=== PATIENT | female | born 1985 | race Caucasian/White ===

== ENCOUNTER → 2019-07-06 16:24 | Outpatient (BNVA) | payer MEDICARE, SELFPAY | PROVIDERS: Family Provider Family Medicine; PCP Family Medicine; Visit Provider Internal Medicine | DX: B18.2 Chronic viral hepatitis C (principal); E78.5 Hyperlipidemia, unspecified | CPT/HCPCS: 36415; 80053; 85025 ==

== ENCOUNTER → 2019-07-18 13:33 | Outpatient (BNVA) | payer SELFPAY | PROVIDERS: Family Provider Family Medicine; PCP Family Medicine; Visit Provider Psychiatry & Neurology Psychiatry | DX: F41.1 Generalized anxiety disorder (principal); F15.20 Other stimulant dependence, uncomplicated; F10.20 Alcohol dependence, uncomplicated; F33.2 Major depressive disorder, recurrent severe without psychotic features | CPT/HCPCS: 99204 ==

== ENCOUNTER → 2019-08-09 11:08 | Outpatient (BNVA) | payer MEDICARE, SELFPAY | PROVIDERS: Family Provider Family Medicine; PCP Family Medicine; Visit Provider Internal Medicine | DX: Z01.89 Encounter for other specified special examinations (principal) | CPT/HCPCS: 36415; 87522; 87902 ==

== ENCOUNTER 2019-08-10 12:07 | Emergency (ER) | payer MEDICARE, SELFPAY ==
[2019-08-10 12:41] VITALS: BP 125/96; PULSE 98; RESP 16; TEMP 36.9; O2SAT 99; BMI 33.0
--- NOTE | 2019-08-10 14:23 | ED_ITS ---
HPI - Abdominal Pain General: Chief Complaint: Abdominal Pain Stated Complaint: abd pain, flank pain, nausea Time Seen by Provider: 08/10/19 14:04 Source: patient Mode of arrival: ambulatory Limitations: no limitations History of Present Illness: HPI narrative: Patient is a 34-year-old female who presents to ED today with complaints of right upper quadrant pain over the past 2 days. Patient states she is having some nausea without vomiting. Bowel movements and urinary habits have been normal. She reports chills without fevers. Patient does have a known history of hepatitis C that was diagnosed last month-seeing Dr. Tian for this. MD elicited complaint: abdominal pain Pertinent past history: other (hep C) Onset (ago): day(s) Pain Consistency: constant Location: RUQ Severity: moderate Quality: stabbing, aching and sharp Relieving factors: nothing Associated Symptoms: Reports chills and nausea; Denies change in bowel habits, change in stool character, coffee ground emesis, constipation, dysuria, fever(s), heartburn, hematochezia, hematemesis, melena, syncope and vomiting Related Data: Date of Last Menstrual Period: 07/18/19 Review of Systems Const: Reports: chills; Denies: fever, body aches, change in appetite, change in weight or fatigue Card: Denies: chest pain, palpitations, irregular heart rhythm, edema, lightheadedness, syncope, pre-syncope or shortness of breath when lying down Resp: Denies: shortness of breath, productive cough, coughing up blood or chest congestion GI: Reports: abdominal pain and nausea; Denies: vomiting, vomiting blood, coffee grounds in vomit, difficulty swallowing, heartburn/indigestion, constipation, change in bowel habits, painful bowel movements, change in stool character, blood in stool, black tarry stool, mucus in stool, white/light colored stool or fatty stool : Denies: flank pain, difficulty urinating, painful urination, urinary frequency, urinary urgency, urinary hesitancy, vaginal bleeding, vaginal discharge or pelvic pain Musc: Denies: neck pain or back pain PFS ED PFSH: Social History (Updated 08/09/19 @ 11:42 by SALMA Smith) Smoking and tobacco status: current every day smoker cigarettes Packs smoked per day: 0.5 Years cigarettes smoked: 18 Quit status (tobacco): has tried quititng Number of times tried to quit tobacco: 5 Second hand smoke exposure: No Smoking risk assessment/counseling performed?: Yes Tobacco counseling given: counseling >3 minutes Alcohol intake: current Alcohol intake frequency: few times a month History of recent travel: No Female Reproductive History: Date of last menstrual period: 07/18/19 Physical Exam Const: COMMON NORMALS: no apparent distress, oriented x3, no limitations, alert and well nourished NUTRITIONAL APPEARANCE: obese Resp: COMMON NORMALS: normal respiratory effort and clear to auscultation bilaterally AUSCULTATION: clear to auscultation bilaterally Cardio: COMMON NORMALS: regular rate and regular rhythm RATE: regular rate RHYTHM: regular rhythm GI: COMMON NORMALS: normal to inspection, nondistended, normoactive bowel sounds, soft to palpation, no hepatosplenomegaly and no masses PALPATION: Yes soft, Yes tender Details: RUQ (with guarding/positive Crook's ) and Yes no hepatosplenomegaly : BLADDER/KIDNEY EXAM: Yes CVA tenderness on the right Back/Pelvis: COMMON NORMALS: thoracic and lumbar spine normal to inspection and thoraco-lumbar ROM normal GENERAL BACK: Yes CVA tenderness Extremity: COMMON NORMALS: normal to inspection Neuro: COMMON NORMALS: oriented x3 SENSORIUM/ORIENTATION: Yes alert Skin: COMMON NORMALS: no rashes or lesions noted GENERAL SKIN EXAM: no rashes or lesions noted Course Vital Signs: Vital signs: Vital Signs Temperature 97.6 F 08/10/19 16:35 Pulse Rate 104 H 08/10/19 16:35 Respiratory Rate 16 08/10/19 16:35 Blood Pressure 133/85 08/10/19 16:35 Pulse Oximetry 96 08/10/19 16:35 MDM - Abdominal Pain MDM Narrative: Medical decision making narrative: Patient presented to ED today with complaints of 48 hours of right upper quadrant pain. Reveal mildly elevated LFTs which are chronic most likely from her hepatitis C infection. She has mild elevation of her lipase (this was present back in 2014). She has no white count. She is not febrile. She was a little tachycardic in the room upon reexamination but she states overall she feels much better after pain medications and nausea medications. I do not feel CT imaging. We will treat patient's pain and nausea and recommend she continue to follow-up with Dr. Tian for treatment of the hepatitis C. Lab Data: Labs: Lab Results 08/10/19 08/10/19 08/10/19 Range/Units 12:58 14:42 14:42 WBC 7.1 (4.0-10.0) 10^3/ uL RBC 4.47 (4.1-5.3) 10^6/u L Hgb 14.4 (11.5-15.3) g/dL Hct 42.7 (37.0-47.0) % MCV 95.5 (81-99) fL MCH 32.2 (28.0-34.0) pg MCHC 33.7 (30.0-36.0) g/dL RDW 12.3 (12.1-15.1) % Plt Count 296 (130-400) 10^3/c mm MPV 10.2 (7.4-10.4) fL Neut % (Auto) 59.8 % Lymph % (Auto) 32.2 % Richardson % (Auto) 5.5 % Eos % (Auto) 1.3 % Baso % (Auto) 1.1 % Neut # (Auto) 4.2 (1.8-7.7) 10^3/u L Lymph # (Auto) 2.3 (0.8-4.8) 10^3/u L Richardson # (Auto) 0.4 (0.2-0.9) 10^3/u L Eos # (Auto) 0.1 (0.0-0.8) 10^3/u L Baso # (Auto) 0.1 (0.0-0.1) 10^3/u L Nucleated RBC % (a uto) 0 % Nucleated RBCs # 0.0 /100WBC Sodium 136 (136-145) mmol/L Potassium 3.7 (3.5-5.1) mmol/L Chloride 101 (98-107) mmol/L Carbon Dioxide 24 (22-29) mmol/L Anion Gap 14.7 (5-19) BUN 5 L (6-20) mg/dL Creatinine 0.7 (0.5-0.9) mg/dL GFR Calculation 95.8 (90-130) mL/min Glucose 90 (65-115) mg/dL Calcium 9.4 (8.5-10.5) mg/dL Total Bilirubin 0.2 (0.15-1.2) mg/dL AST 43 H (0-32) U/L ALT 60 H (0-33) U/L Alkaline Phosphata se 87 (35-105) IU/L Total Protein 8.0 (6.6-8.7) g/dL Albumin 4.5 (3.5-5.2) g/dL Globulin 3.5 (1.3-4.6) g/dL Lipase 107 H (13-60) U/L HCG, Qual (Negative) Urine Color Straw (Yellow) Urine Appearance Clear (CLEAR) Urine pH 7 (5-7) Ur Specific Gravit y 1.005 (1.005-1.030) Urine Protein Neg (Negative) Urine Glucose (UA) Norm (Normal) Urine Ketones Negative (Negative) Urine Blood Neg (Negative) Urine Nitrate Negative (Negative) Urine Bilirubin Neg (NEGATIVE) Urine Urobilinogen Norm (Negative) mg/dL Ur Leukocyte Cecelia ase Negative (Negative) 08/10/19 Range/Units 14:42 WBC (4.0-10.0) 10^3/ uL RBC (4.1-5.3) 10^6/u L Hgb (11.5-15.3) g/dL Hct (37.0-47.0) % MCV (81-99) fL MCH (28.0-34.0) pg MCHC (30.0-36.0) g/dL RDW (12.1-15.1) % Plt Count (130-400) 10^3/c mm MPV (7.4-10.4) fL Neut % (Auto) % Lymph % (Auto) % Richardson % (Auto) % Eos % (Auto) % Baso % (Auto) % Neut # (Auto) (1.8-7.7) 10^3/u L Lymph # (Auto) (0.8-4.8) 10^3/u L Richardson # (Auto) (0.2-0.9) 10^3/u L Eos # (Auto) (0.0-0.8) 10^3/u L Baso # (Auto) (0.0-0.1) 10^3/u L Nucleated RBC % (a uto) % Nucleated RBCs # /100WBC Sodium (136-145) mmol/L Potassium (3.5-5.1) mmol/L Chloride (98-107) mmol/L Carbon Dioxide (22-29) mmol/L Anion Gap (5-19) BUN (6-20) mg/dL Creatinine (0.5-0.9) mg/dL GFR Calculation (90-130) mL/min Glucose (65-115) mg/dL Calcium (8.5-10.5) mg/dL Total Bilirubin (0.15-1.2) mg/dL AST (0-32) U/L ALT (0-33) U/L Alkaline Phosphata se (35-105) IU/L Total Protein (6.6-8.7) g/dL Albumin (3.5-5.2) g/dL Globulin (1.3-4.6) g/dL Lipase (13-60) U/L HCG, Qual Negative (Negative) Urine Color (Yellow) Urine Appearance (CLEAR) Urine pH (5-7) Ur Specific Gravit y (1.005-1.030) Urine Protein (Negative) Urine Glucose (UA) (Normal) Urine Ketones (Negative) Urine Blood (Negative) Urine Nitrate (Negative) Urine Bilirubin (NEGATIVE) Urine Urobilinogen (Negative) mg/dL Ur Leukocyte Cecelia ase (Negative) Imaging Data ^: US gallbladder: Radiologist's impression: [address] [address] Ultrasound Report Signed Patient: Shelly Acevedo Unit #: [id number] : 1985 Age/Sex: 34 / F ADM Date: 08/10/19 Loc: ER Room/Bed: Attending Dr: Ordering Provider/Ordering MD: Lisandra Infante Date of Service: 08/10/19 Procedure(s): US gall bladder 57194 Accession Number(s): [id number] Report Number: [id number] WS: [id number] ABDOMINAL ULTRASOUND LIMITED REASON FOR VISIT: RUQ pain TECHNIQUE: Grayscale and Doppler ultrasound examination of the abdomen. FINDINGS: Pancreas: Poorly seen due to overriding gas. Abdominal aorta and IVC: Appears negative Liver: Liver measures 16.1 cm in length. Normal hepatopedal circulation. Gallbladder: Gallbladder wall thickness measures 2.3 mm. No stones or polyps. The common bile duct measured 0.46 cm. Right kidney: Right kidney measures 10.0 cm x 5.2 cm x 4.3 cm. Right kidney cortex measures 1.0 cm. No hydronephrosis or stones. US/US gall bladder [id number] IMPRESSION: Normal right upper quadrant ultrasound. Dictated By: Jerson Crook DO Signed By: Jerson Crook DO Signed Date/Time: 08/10/191549 DD/ 154 Discharge Plan Discharge Patient Disposition: Home, Self-Care Clinical Impression: Right upper quadrant abdominal pain Hepatitis C Qualifiers: Viral hepatitis chronicity: unspecified Hepatic coma status: without hepatic coma Qualified Code(s): B19.20 - Unspecified viral hepatitis C without hepatic coma Condition: Stable Prescriptions: New hydrocodone-acetaminophen 5-325 mg tablet 1 tab PO Q6H PRN (Reason: pain) Qty: 14 RF: 0 Zofran 4 mg tablet 4 mg PO Q6H PRN (Reason: nausea and vomiting) Qty: 14 RF: 0 No Action venlafaxine 150 mg capsule,extended release 24hr 150 mg PO QAM Qty: 30 RF: 2 gabapentin 100 mg capsule 100 mg PO TID RF: 0 doxepin 10 mg capsule 10 mg PO .AT BEDTIME RF: 0 promethazine 12.5 mg tablet 12.5 mg PO Q6H PRNRF: 0 omeprazole 20 mg capsule,delayed release(DR/EC) 20 mg PO QDAY RF: 0 venlafaxine 37.5 mg capsule,extended release 24hr 75 mg PO QAM RF: 0 Discharge Orders: Discharge Order (Routine); Ordered 08/10/19 Ordered By: Lisandra Infante Referrals: Sylvester Hill MD [Primary Care Provider] - Discharge Diet: Advance as tolerated Discharge Activity: Increase activity as tolerated Patient Instructions: Cholecystitis (ED), Abdominal Pain (ED) Activity Restrictions/Additional Instructions: As discussed continue follow-up with Dr. Tian for treatment of your hepatitis C. You need to return to the emergency department for worsening pain, continued episodes of vomiting or diarrhea, fevers greater than 100.4, or any other concerns you may have. Use pain medication sparingly and only if absolutely necessary as these unfortunately have to be filtered by your liver. Discharge Date/Time: 08/10/19 16:36 Coding Level of Care Code ED Adjunct Physical Education Instructor for Chg Fwd Exam Comprehensive
[2019-08-10 14:59] LABS: Basophils # 0.1 10^3/uL (0.0-0.1); Basophils % 1.1 %; Eosinophils # 0.1 10^3/uL (0.0-0.8); Eosinophils % 1.3 %; Hematocrit 42.7 % (37.0-47.0); Hemoglobin 14.4 g/dL (11.5-15.3); Lymphocytes # 2.3 10^3/uL (0.8-4.8); Lymphocytes % 32.2 %; Mean Corpuscular HGB Conc 33.7 g/dL (30.0-36.0); Mean Corpuscular Hemoglobin 32.2 pg (28.0-34.0); Mean Corpuscular Volume 95.5 fL (81-99); Mean Platelet Volume 10.2 fL (7.4-10.4); Monocytes # 0.4 10^3/uL (0.2-0.9); Monocytes % 5.5 %; Neutrophils # 4.2 10^3/uL (1.8-7.7); Neutrophils % 59.8 %; Nucleated Red Blood Cells % 0 %; Platelet Count 296 10^3/cmm (130-400); Red Blood Count 4.47 10^6/uL (4.1-5.3); Red Cell Distribution Width 12.3 % (12.1-15.1); White Blood Count 7.1 10^3/uL (4.0-10.0)
[2019-08-10 15:00] LABS: Add Urine Microscopic? NO
[2019-08-10 15:05] LABS: Bilirubin Urine Neg (NEGATIVE); Blood Urine Neg (Negative); Glucose Urine UA Norm (Normal); Ketones Urine Negative (Negative); Leukocyte Esterase Urine Negative (Negative); Nitrate Urine Negative (Negative); Protein Urine Neg (Negative); Specific Gravity, Urine 1.005 (1.005-1.030); Urine Appearance Clear (CLEAR); Urine Color Straw (Yellow); Urobilinogen Urine Norm (Negative); pH Urine 7 (5-7)
[2019-08-10 15:08] LABS: HCG, Serum Qual Negative (Negative)
--- NOTE | 2019-08-10 15:08 | US_ITS ---
WS: [id number] ABDOMINAL ULTRASOUND LIMITED REASON FOR VISIT: RUQ pain TECHNIQUE: Grayscale and Doppler ultrasound examination of the abdomen. FINDINGS: Pancreas: Poorly seen due to overriding gas. Abdominal aorta and IVC: Appears negative Liver: Liver measures 16.1 cm in length. Normal hepatopedal circulation. Gallbladder: Gallbladder wall thickness measures 2.3 mm. No stones or polyps. The common bile duct me asured 0.46 cm. Right kidney: Right kidney measures 10.0 cm x 5.2 cm x 4.3 cm. Right kidney cortex measures 1.0 cm. N o hydronephrosis or stones. US/US gall bladder [id number] IMPRESSION: Normal right upper quadrant ultrasound.
[2019-08-10 15:18] LABS: Alanine Aminotransferase 60 U/L (0-33); Albumin Level 4.5 g/dL (3.5-5.2); Alkaline Phosphatase 87 IU/L (35-105); Anion Gap 14.7 (5-19); Aspartate Amino Transferase 43 U/L (0-32); Blood Urea Nitrogen 5 mg/dL (6-20); Calcium 9.4 mg/dL (8.5-10.5); Carbon Dioxide 24 mmol/L (22-29); Chloride 101 mmol/L (98-107); Globulin 3.5 g/dL (1.3-4.6); Glomerular Filtration Rate 95.8 mL/min (90-130); Glucose 90 mg/dL (65-115); Lipase 107 U/L (13-60); Potassium 3.7 mmol/L (3.5-5.1); Sodium 136 mmol/L (136-145); Total Bilirubin 0.2 mg/dL (0.15-1.2)
[2019-08-10 15:48] VITALS: RESP 16; O2SAT 97
[2019-08-10] MEDS: ondansetron 2 mg/ML SDV 2 mL 4 MG IVP (15:48)
[2019-08-10] MEDS: morphine 4 mg/mL SDV 1 mL IVP (15:48)
[2019-08-10 16:35] VITALS: BP 133/85; PULSE 104; RESP 16; TEMP 36.4; O2SAT 96
== END 2019-08-10 16:36 | disposition home or self-care (01) ==
PROVIDERS: Emergency Provider Physician Assistant; Family Provider Family Medicine; PCP Family Medicine
DX: R10.11 Right upper quadrant pain (principal); B19.20 Unspecified viral hepatitis C without hepatic coma; F17.210 Nicotine dependence, cigarettes, uncomplicated
CPT/HCPCS: 76705; 80053; 81003; 83690; 84703; 85025; 96374; 96375; 99281; 99283; A9270; J2270; J2405

== ENCOUNTER → 2019-09-04 13:01 | Outpatient (BNVA) | payer MEDICARE, SELFPAY | PROVIDERS: Family Provider Family Medicine; PCP Family Medicine; Visit Provider Psychiatry & Neurology Psychiatry | DX: E66.9 Obesity, unspecified (principal); F10.20 Alcohol dependence, uncomplicated; F15.20 Other stimulant dependence, uncomplicated; F41.1 Generalized anxiety disorder; F33.2 Major depressive disorder, recurrent severe without psychotic features; F17.200 Nicotine dependence, unspecified, uncomplicated | CPT/HCPCS: 99213 ==

== ENCOUNTER → 2019-10-10 08:01 | Outpatient (BNVA) | payer MEDICARE, MEDICAID, SELFPAY | PROVIDERS: Family Provider Family Medicine; PCP Family Medicine; Referring Provider Nurse Practitioner Family; Visit Provider Specialist | DX: R56.9 Unspecified convulsions (principal); G93.9 Disorder of brain, unspecified; F33.2 Major depressive disorder, recurrent severe without psychotic features; F41.1 Generalized anxiety disorder; G43.711 Chronic migraine without aura, intractable, with status migrainosus; F17.210 Nicotine dependence, cigarettes, uncomplicated | CPT/HCPCS: 99204 ==

== ENCOUNTER → 2019-10-16 12:54 | Outpatient (BNVA) | payer MEDICARE, MEDICAID, SELFPAY | PROVIDERS: Family Provider Family Medicine; PCP Family Medicine; Visit Provider Specialist | DX: R56.9 Unspecified convulsions (principal); R51 Headache; F17.210 Nicotine dependence, cigarettes, uncomplicated | CPT/HCPCS: 95816; 96372; J1885; J2405 ==

== ENCOUNTER 2019-10-19 08:02 | Outpatient (CLI) | payer MEDICARE, SELFPAY ==
--- NOTE | 2019-10-19 | MR_ITS ---
WS: [id number] MRI HEAD WITH CONTRAST TECHNIQUE: Sagittal T1, T2 axial, T2 axial FLAIR, axial susceptibility weighted imaging, axial diffus ion weighted images, and coronal T2 images were obtained. Pre and post-T1 axial and post T1 coronal i mages. ADC and FSPGR images. CLINICAL INFORMATION: MS COMPARISON: CT August 15, 2017 and MRI September 20, 2015 MRI June 19, 2015 FINDINGS: No evidence of restricted diffusion to suggest acute ischemia. Ventricular system and basal cisterns are patent. Moderate patchy supratentorial white matter changes consistent with history of demyelinat ing disease. Number and distribution of lesions is not significantly changed since September 20, 2015. No significant thinning of the corpus callosum. No significant parenchymal volume loss. No abnormal gadolinium enhancement. No enhancing demyelinating lesions to indicate active disease. No significant T1 hypointense lesion load. Normal optic chiasm and pituitary infundibulum. Normal visua lized dural venous sinuses. Temporal lobes and hippocampal formations are normal in appearance. IMPRESSION: 1. No evidence of restricted diffusion to suggest acute ischemia. 2. Mild patchy supratentorial white matter changes consistent with history of demyelinating disease. 3. Number and distribution of lesions is unchanged. 4. No enhancing lesions to indicate active disease. 5. No significant parenchymal volume loss. No significant callosal atrophy. No significant T1 hypoin tense lesion load.
== END 2019-10-19 08:03 | disposition home or self-care (01) ==
LOC: RADWPI 08:06
PROVIDERS: Family Provider Family Medicine; PCP Family Medicine; Visit Provider Specialist
DX: G35 Multiple sclerosis (principal)
CPT/HCPCS: 70553; A9579

== ENCOUNTER → 2019-10-30 12:28 | Outpatient (BNVA) | payer MEDICARE, SELFPAY | PROVIDERS: Family Provider Family Medicine; PCP Family Medicine; Visit Provider Specialist | DX: G43.711 Chronic migraine without aura, intractable, with status migrainosus (principal) | CPT/HCPCS: 96372 ==

== ENCOUNTER → 2019-11-07 15:54 | Outpatient (BNVA) | payer MEDICARE, SELFPAY | PROVIDERS: Family Provider Family Medicine; PCP Family Medicine; Visit Provider Internal Medicine | DX: B18.2 Chronic viral hepatitis C (principal) | CPT/HCPCS: 87522 ==

== ENCOUNTER → 2019-11-08 08:24 | Outpatient (BNVA) | payer MEDICARE, SELFPAY | PROVIDERS: Family Provider Family Medicine; PCP Family Medicine; Visit Provider Psychiatry & Neurology Psychiatry | DX: F41.1 Generalized anxiety disorder (principal); F33.2 Major depressive disorder, recurrent severe without psychotic features; F10.20 Alcohol dependence, uncomplicated; F15.20 Other stimulant dependence, uncomplicated; F17.200 Nicotine dependence, unspecified, uncomplicated | CPT/HCPCS: 99214 ==

== ENCOUNTER → 2019-12-13 14:42 | Outpatient (BNVA) | payer MEDICARE, MEDICAID, SELFPAY | PROVIDERS: Family Provider Family Medicine; PCP Family Medicine; Visit Provider Specialist | DX: G35 Multiple sclerosis (principal); G93.9 Disorder of brain, unspecified; G43.019 Migraine without aura, intractable, without status migrainosus | CPT/HCPCS: 99214 ==

== ENCOUNTER → 2020-01-03 07:50 | Outpatient (BNVA) | payer MEDICARE, MEDICAID, SELFPAY | PROVIDERS: Family Provider Family Medicine; PCP Family Medicine; Visit Provider Psychiatry & Neurology Psychiatry | DX: F33.2 Major depressive disorder, recurrent severe without psychotic features (principal); F41.1 Generalized anxiety disorder; F15.20 Other stimulant dependence, uncomplicated; F10.20 Alcohol dependence, uncomplicated; F17.200 Nicotine dependence, unspecified, uncomplicated | CPT/HCPCS: 99213 ==

== ENCOUNTER 2020-03-06 10:02 | Outpatient (CLI) | payer MEDICARE, SELFPAY ==
[2020-03-06] MEDS: iohexol 300 mg/mL 50 mL Btl IV (11:13)
--- NOTE | 2020-03-06 11:30 | CT_ITS ---
WS: [id number] CT ABDOMEN PELVIS TECHNIQUE: Contrast-enhanced CT of the abdomen and pelvis with coronal and sagittal reformatted image s. CLINICAL INFORMATION: RLQ/Pelvic pain COMPARISON: 5 8,018 DLP: 1145.[address] scans at [facility] use at least one of these dose optimization techniques: automat ed exposure control; mA and/or kV adjustment per patient size (includes targeted exams where dose is matched to clinical indication); or iterative reconstruction. FINDINGS: Normal liver. Normal portal vein and splenic vein. Slightly distended gallbladder otherwise appears n ormal. Normal spleen. Normal GE junction. Lung bases are well aerated. Normal pancreas. Adrenal gland s are normal. Normal renal parenchymal enhancement. No hydronephrosis. Normal caliber abdominal aorta . Mild constipation with fecal retention. Enhancement with fluid distention involving the terminal ileu m. Distended terminal ileum measures 2.7 CM. This is nonspecific but can be seen with inflammatory nelsy wel disease or enteritis/ileitis. No evidence of high-grade obstruction. Proximal small bowel is norm al in appearance. Multiple lobulated ovarian cysts with peripheral enhancement. Largest in the right measures 3.1 cm an d largest in the left measures 2.6 CM. Trace free fluid in the pelvis. Physiologic uterine enhancemen t. CT/CT abdomen pelvis w con* [id number] IMPRESSION: 1. Lobulated ovarian cysts bilaterally largest in the right measuring 3.1 cm a nd largest in the left measuring 2.7 CM. This can be further evaluated ultrasou nd. Trace free fluid in the pelvis. 2. Distended and peripheral enhancing terminal ileum nonspecific but can be se en with inflammatory bowel disease or ileitis. 3. Mild constipation. 4. No other significant findings.
[2020-03-06] MEDS: iohexol 300 mg/mL 100 mL Btl IV (11:41)
== END 2020-03-06 10:03 | disposition home or self-care (01) ==
PROVIDERS: Family Provider Family Medicine; PCP Family Medicine; Visit Provider Internal Medicine
DX: R10.2 Pelvic and perineal pain (principal); R10.31 Right lower quadrant pain; K59.00 Constipation, unspecified; N83.202 Unspecified ovarian cyst, left side; N83.201 Unspecified ovarian cyst, right side
CPT/HCPCS: 74177; Q9967

== ENCOUNTER → 2020-03-18 09:32 | Outpatient (BNVA) | payer MEDICARE, SELFPAY | PROVIDERS: Family Provider Family Medicine; PCP Family Medicine; Visit Provider Obstetrics & Gynecology | DX: Z12.4 Encounter for screening for malignant neoplasm of cervix (principal) | CPT/HCPCS: 88175 ==

== ENCOUNTER → 2020-04-22 10:07 | Outpatient (BNVA) | payer MEDICARE, SELFPAY | PROVIDERS: Family Provider Family Medicine; PCP Family Medicine; Visit Provider Obstetrics & Gynecology | DX: N83.202 Unspecified ovarian cyst, left side (principal); N83.201 Unspecified ovarian cyst, right side; R10.2 Pelvic and perineal pain | CPT/HCPCS: 76830 ==

== ENCOUNTER → 2020-04-25 07:51 | Outpatient (BNVA) | payer MEDICARE, SELFPAY | PROVIDERS: Family Provider Family Medicine; PCP Family Medicine; Visit Provider Psychiatry & Neurology Psychiatry | DX: F41.1 Generalized anxiety disorder (principal); F33.2 Major depressive disorder, recurrent severe without psychotic features | CPT/HCPCS: 99213 ==

== ENCOUNTER → 2020-09-11 14:48 | Outpatient (BNVA) | payer MEDICARE, MEDICAID, SELFPAY | PROVIDERS: Family Provider Family Medicine; PCP Internal Medicine; Visit Provider Specialist | DX: G37.9 Demyelinating disease of central nervous system, unspecified (principal); G56.02 Carpal tunnel syndrome, left upper limb; R20.0 Anesthesia of skin; R20.2 Paresthesia of skin; G43.711 Chronic migraine without aura, intractable, with status migrainosus; F41.1 Generalized anxiety disorder; Z87.891 Personal history of nicotine dependence | CPT/HCPCS: 99214 ==

== ENCOUNTER → 2020-10-14 09:06 | Outpatient (BNVA) | payer MEDICARE, MEDICAID, SELFPAY | PROVIDERS: Family Provider Family Medicine; PCP Internal Medicine; Visit Provider Specialist | DX: G56.02 Carpal tunnel syndrome, left upper limb (principal); R20.0 Anesthesia of skin; R20.2 Paresthesia of skin; Z87.891 Personal history of nicotine dependence | CPT/HCPCS: 95907 ==

== ENCOUNTER → 2021-03-12 09:41 | Outpatient (BNVA) | payer MEDICARE, MEDICAID, SELFPAY | PROVIDERS: Family Provider Family Medicine; PCP Internal Medicine; Visit Provider Specialist | DX: G37.9 Demyelinating disease of central nervous system, unspecified (principal); G43.711 Chronic migraine without aura, intractable, with status migrainosus; G56.03 Carpal tunnel syndrome, bilateral upper limbs; M79.7 Fibromyalgia; F40.298 Other specified phobia; G25.81 Restless legs syndrome; R20.0 Anesthesia of skin; R20.2 Paresthesia of skin; F17.290 Nicotine dependence, other tobacco product, uncomplicated | CPT/HCPCS: 99214 ==

== ENCOUNTER → 2021-03-18 10:47 | Outpatient (BNVA) | payer MEDICARE, SELFPAY | PROVIDERS: Family Provider Family Medicine; PCP Internal Medicine; Visit Provider Specialist | DX: G56.03 Carpal tunnel syndrome, bilateral upper limbs (principal); G57.33 Lesion of lateral popliteal nerve, bilateral lower limbs; G25.81 Restless legs syndrome; F17.290 Nicotine dependence, other tobacco product, uncomplicated | CPT/HCPCS: 95913 ==

== ENCOUNTER → 2021-06-02 13:56 | Outpatient (BNVA) | payer MEDICARE, MEDICAID, SELFPAY | PROVIDERS: Family Provider Family Medicine; PCP Internal Medicine; Visit Provider Nurse Practitioner Family | DX: Z00.00 Encounter for general adult medical examination without abnormal findings (principal); Z13.220 Encounter for screening for lipoid disorders; Z13.6 Encounter for screening for cardiovascular disorders; Z79.899 Other long term (current) drug therapy | CPT/HCPCS: 80053; 80061; 83036; 84443; 85025 ==

== ENCOUNTER → 2021-09-17 16:45 | Outpatient (BNVA) | payer MEDICARE, MEDICAID, SELFPAY | PROVIDERS: Family Provider Family Medicine; PCP Internal Medicine; Visit Provider Nurse Practitioner Family | DX: G57.90 Unspecified mononeuropathy of unspecified lower limb (principal); Z13.1 Encounter for screening for diabetes mellitus; F33.2 Major depressive disorder, recurrent severe without psychotic features | CPT/HCPCS: 80053; 82607; 82728; 82746; 83550; 84443 ==

== ENCOUNTER → 2021-11-06 12:00 | Outpatient (BNVA) | payer MEDICARE, SELFPAY | PROVIDERS: Family Provider Family Medicine; PCP Internal Medicine; Visit Provider Specialist | DX: G43.711 Chronic migraine without aura, intractable, with status migrainosus (principal); G57.30 Lesion of lateral popliteal nerve, unspecified lower limb; G56.03 Carpal tunnel syndrome, bilateral upper limbs; G25.81 Restless legs syndrome; M79.7 Fibromyalgia; G37.9 Demyelinating disease of central nervous system, unspecified | CPT/HCPCS: 99214 ==

== ENCOUNTER 2021-12-14 14:38 | Inpatient (IN) | payer MEDICARE, SELFPAY ==
--- NOTE | 2021-12-14 14:57 | W.ED.GENADLT ---
HPI - General Adult General: Chief complaint: Psychiatric Symptoms Stated complaint: SI Time Seen by Provider: 12/14/21 14:49 History of Present Illness: HPI: [36]yo patient w/ hx of bipolar disorder presenting with SI with plan. On arrival, the patient is AAOx3 and cooperative with my evaluation. No focal complaints of chest pain, shortness of breath, palpitations, N/V, focal GI/ complaints. Currently denies HI. No complaints of hallucinations. Onset: acute Duration: ongoing Location: home Severity: severe Associated symptoms: Deny chest pain, dyspnea, nausea, rash, palpitations or vomiting Review of Systems Const: Denies: fever(s) or chills Eyes: Denies: change in vision ENMT: Denies: mouth pain Card: Denies: chest pain or palpitations Resp: Denies: dyspnea or non-productive cough GI: Denies: abdominal pain, nausea, vomiting or diarrhea : Denies: dysuria Musc: Denies: extremity pain Skin/Breast: Denies: rash or new lesions Neuro: Denies: weakness in extremities Psych: Reports: depression and suicidal ideation Nguyễn/Lymph: Denies: easy bruising PFSH ED PFSH: Medical History Chronic migraine without aura, intractable, with status migrainosus GERD (gastroesophageal reflux disease) Hepatitis C Completed Epclusa in 12/08. SVR. Major depressive disorder, recurrent severe without psychotic features Anxiety and depression diagnosed at the age of 28 and she sees a therapist and is on medication which helps control her symptoms. Multiple sclerosis No pertinent past medical history Denies diabetes, asthma, hypertension, DVT/PE PCP: MARIE Sellers Seizure disorder Diagnosed at the age of 18 and is being managed by Dr. Vega whom she sees every 3 months. Surgical History History of dilation and curettage 2011 for a miscarriage at [facility]. Status post lumbar surgery 2010--performed at [facility] in [facility] Family History Father Heart disease Mother Stroke Thyroid condition Breast cancer diagnosed at age 50 Grandmother Hypertension paternal Heart disease paternal Hyperlipidemia paternal Grandfather Diabetes paternal Colon cancer paternal, diagnosed at age 64 Sister Thyroid condition Denies family history of Ovarian cancer Uterine cancer Social History Smoking and tobacco status: current every day smoker (Vape) Quit status (tobacco): has tried quititng Number of times tried to quit tobacco: 5 Second hand smoke exposure: No Smoking risk assessment/counseling performed?: Yes Tobacco counseling given: provider counseling and counseling >3 minutes Alcohol intake: never History of recent travel: No Female Reproductive History: Date of last menstrual period: 07/18/19 Physical Exam Const: COMMON NORMALS: alert HENMT: COMMON NORMALS: atraumatic HEAD & SCALP: atraumatic MOUTH: moist mucous membranes not abnormal Eye: COMMON NORMALS: EOMs intact bilaterally and conjunctivae normal CONJUNCTIVA: Yes conjunctivae normal Neck/C-Spine: COMMON NORMALS: full ROM and supple Resp: COMMON NORMALS: normal respiratory effort and clear to auscultation bilaterally AUSCULTATION: clear to auscultation bilaterally Cardio: COMMON NORMALS: regular rate RATE: regular rate GI: COMMON NORMALS: Soft to palpation and non-tender PALPATION: Yes Soft to palpation Extremity: COMMON NORMALS: full ROM Neuro: SENSORIUM/ORIENTATION: Yes alert MOTOR EXAM: No Abnormal motor strength present and Other motor observations present (no focal motor deficits) Psych: COMMON NORMALS: speech normal SPEECH: Yes normal speech MOOD & AFFECT: Yes depressed mood Course Vital Signs: Vital signs: Vital Signs Pulse Rate 110 H 12/14/21 15:19 Respiratory Rate 18 12/14/21 15:19 Blood Pressure 169/103 12/14/21 15:19 Pulse Oximetry 97 12/14/21 15:19 MDM - General Adult Medical Decision Making [36]yo patient w/ hx of bipolar disorder presenting for depression, SI with plan. HDS, exam within normal limit Thoughts are linear and organized, and the patient has no AH/VH, or HI. Clinically the patient displays no overt toxidrome; they are well appearing, with low suspicion for toxic ingestion given history and exam. Symptoms unlikely 2/2 anemia, hypothyroidism, infection, or ICH. Workup: CBC, CMP, Lipase, salicylate/tylenol, bHCG, UDS Lab findings: wnl [4:30pm] On reassessment, labs and workup wnl. Patient is hemodynamically stable with no acute medical complaints. Case discussed with psychiatric provider Dr. Ely at [facility] psych inpatient with recommendation for admission. Disposition: NPU Discharge Plan Discharge Patient Disposition: Admitted As Inpatient Clinical Impression: Depression with suicidal ideation Condition: Stable Coding Level of Care Code ED Highway Maintainer for Donal Fwd Exam Comprehensive
--- NOTE | 2021-12-14 15:03 | ECG_ITS ---
[facility] Test Date: 2021-12-14 Pat Name: Shelly Acevedo Department: Room: 127 Gender: Female Equipment Analyst: : 1985 Requested By: Cameron Hollis Order Number: [id number] Chantell MD: Javier Méndez M.D. Measurements Intervals [place] Rate: 93 P: 57 OR: 136 QRS: 75 QRSD: 96 T: 27 QT: 330 QTc: 412 Interpretive Statements SINUS RHYTHM Compared to ECG 08/15/2017 17:08:45 Sinus tachycardia no longer present T-wave abnormality still present Electronically Signed On 12-15-2021 17:33:22 CDT by Javier Méndez M.D. [id number]
[2021-12-14 15:19] VITALS: BP 169/103; PULSE 110; RESP 18; O2SAT 97
[2021-12-14 18:28] LABS: Basophils # 0.1 10^3/uL (0.0-0.1); Basophils % 1.4 %; Eosinophils % 0.8 %; Hematocrit 37.4 % (37.0-47.0); Hemoglobin 12.9 g/dL (11.5-15.3); Lymphocytes # 1.9 10^3/uL (0.8-4.8); Lymphocytes % 37.3 %; Mean Corpuscular HGB Conc 34.5 g/dL (30.0-36.0); Mean Corpuscular Hemoglobin 31.9 pg (28.0-34.0); Mean Corpuscular Volume 92.6 fl (81-99); Monocytes # 0.3 10^3/uL (0.2-0.9); Monocytes % 4.9 %; Neutrophils # 2.82 10^3/uL (1.8-7.7); Neutrophils % 55.4 %; Nucleated Red Blood Cells % 0 %; Platelet Count 306 10^3/cmm (130-400); Red Blood Count 4.04 10^6/uL (4.1-5.3); Red Cell Distribution Width 13.1 % (12.1-15.1); White Blood Count 5.1 10^3/uL (4.0-10.0)
[2021-12-14 18:39] LABS: Amphetamines Screen Urine Negative (Negative); Barbiturates Screen Urine Positive (Negative); Benzodiazepines Screen Urine Negative (Negative); Cocaine Screen Urine Negative (Negative); Opiate Screen Urine Positive (Negative); PCP Screen Urine Negative (Negative); THC Screen Urine Negative (Negative)
[2021-12-14 18:40] LABS: HCG, Serum Qual Negative (Negative)
[2021-12-14 18:51] LABS: Alanine Aminotransferase 6 U/L (0-33); Albumin Level 4.4 g/dL (3.5-5.2); Alkaline Phosphatase 69 IU/L (35-105); Anion Gap 14.4 (5-19); Aspartate Amino Transferase 14 U/L (0-32); Blood Urea Nitrogen 9 mg/dL (6-20); Calcium 8.7 mg/dL (8.5-10.5); Carbon Dioxide 21 mmol/L (22-29); Chloride 106 mmol/L (98-107); Globulin 2.7 g/dL (1.3-4.6); Glomerular Filtration Rate 94.7 mL/min (90-130); Glucose 132 mg/dL (65-115); Lipase 33 U/L (13-60); Osmolality Calculated 287 mOsm/kg (285-295); Potassium 3.4 mmol/L (3.5-5.1); Sodium 138 mmol/L (136-145); Thyroid Stimulating Hormone 0.61 uIU/mL (0.27-4.20); Total Bilirubin 0.3 mg/dL (0.15-1.2); Total Protein 7.1 g/dL (6.6-8.7)
[2021-12-14 18:55] LABS: Acetaminophen < 5.0 ug/mL (10-30); Salicylate < 0.3 mg/dL (3-10)
--- NOTE | 2021-12-14 18:55 | PC.NURSE ---
Report called to Elsa MELENDREZ.
[2021-12-14 20:27] LABS: Free T4 Free Thyroxine 0.98 ng/dL (0.82-1.77)
[2021-12-14 21:16] VITALS: BP 131/85; PULSE 103; RESP 18; TEMP 36.6; O2SAT 97
[2021-12-14] MEDS: trazodone 50 mg Tablet PO (21:44)
[2021-12-14] MEDS: nicotine 2 mg Gum BUCCAL (21:55)
[2021-12-14 22:00] VITALS: BP 131/85; PULSE 103; RESP 18; TEMP 36.6; O2SAT 97
[2021-12-15 06:00] VITALS: BP 108/69; PULSE 79; RESP 17; TEMP 36.3; O2SAT 99
[2021-12-15] MEDS: nicotine 2 mg Gum BUCCAL ×2 (08:26→15:21)
[2021-12-15] MEDS: pantoprazole DR 40 mg Tablet PO (08:26)
[2021-12-15] MEDS: gabapentin 100 mg Capsule 200 MG PO ×3 (08:26→20:43)
[2021-12-15] MEDS: BuSPIRONE 10 mg Tablet PO ×2 (08:26→16:56)
[2021-12-15] MEDS: topiramate 100 mg Tablet 50 MG PO (08:26)
[2021-12-15] MEDS: venlafaxine ER (24HR) 150 mg Capsule PO (08:26)
[2021-12-15] MEDS: ropinirole 0.25 mg Tablet PO ×3 (08:26→20:44)
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
[2021-12-15 11:49] LABS: Adenovirus Not Detected (NOT DETECT); Chlamydia Pneumoniae Not Detected (NOT DETECT); Coronavirus 229E,HKU1,NL63,OC4 Not Detected (NOT DETECT); Human Metapneumovirus Not Detected (NOT DETECT); Human Rhinovirus/Enterovirus Not Detected (NOT DETECT); Influenza A Not Detected (NOT DETECT); Influenza A H1 Not Detected (NOT DETECT); Influenza A H1-2009 Not Detected (NOT DETECT); Influenza A H3 Not Detected (NOT DETECT); Influenza B Not Detected (NOT DETECT); Mycoplasma Pneumoniae Not Detected (NOT DETECT); Parainfluenza Virus Type 1 Not Detected (NOT DETECT); Parainfluenza Virus Type 2 Not Detected (NOT DETECT); Parainfluenza Virus Type 3 Not Detected (NOT DETECT); Parainfluenza Virus Type 4 Not Detected (NOT DETECT); Respiratory Syncytial Virus A Not Detected (NOT DETECT); Respiratory Syncytial Virus B Not Detected (NOT DETECT); SARS-COV-2 Not Detected (NOT DETECT)
[2021-12-15 14:00] VITALS: BP 138/93; PULSE 106; RESP 20; TEMP 36.7; O2SAT 98
[2021-12-15] MEDS: phenytoin ER 100 mg Capsule 300 MG PO (15:21)
[2021-12-15 21:30] VITALS: BP 138/95; PULSE 100; RESP 16; TEMP 37.1; O2SAT 99
[2021-12-16 06:00] VITALS: BP 143/90; PULSE 104; RESP 17; TEMP 36.8; O2SAT 98
[2021-12-16] MEDS: phenytoin ER 100 mg Capsule 300 MG PO (10:15)
[2021-12-16] MEDS: gabapentin 100 mg Capsule 200 MG PO ×3 (10:16→20:51)
[2021-12-16] MEDS: pantoprazole DR 40 mg Tablet PO (10:17)
[2021-12-16] MEDS: ropinirole 0.25 mg Tablet PO ×3 (10:17→20:51)
[2021-12-16] MEDS: topiramate 100 mg Tablet 50 MG PO (10:17)
[2021-12-16] MEDS: BuSPIRONE 10 mg Tablet PO ×2 (10:17→20:48)
[2021-12-16] MEDS: venlafaxine ER (24HR) 150 mg Capsule PO (10:18)
[2021-12-16] MEDS: nicotine 2 mg Gum BUCCAL (10:21)
[2021-12-16 14:00] VITALS: BP 155/92; PULSE 112; RESP 17; TEMP 36.6; O2SAT 100
[2021-12-16] MEDS: hyDROXYzine 25 mg Capsule 50 MG PO ×2 (15:49→20:48)
--- NOTE | 2021-12-16 15:51 | PC.NURSE ---
PRN VISTARIL 50 MG GIVEN PO PER PT C/O STATED ANXIETY
--- NOTE | 2021-12-16 17:54 | P.NPUPN_ITS ---
Subjective NPU Subjective: Patient presents today continuing to seem to be very motivated towards her addiction treatment. She worked with the treatment team to find options and the [facility] system in [place] became the likely target. They are endorsing that they have a bed for her however they needed to do the interview which states that should occur this evening. They report that they should be ready for her by tomorrow. She reported she is very optimistic about this opportunity and is seeking a longer term recovery process maybe as long as a year to try to solidify sobriety that can be depended upon. Mental Status Exam MSE Comments: This is an obese white female with adequate dress, grooming and eye contact.? Significant pick lee on skin and arms.? No abnormal movements except for mild psychomotor retardation.? Cooperative with exam in no acute distress. Speech was normal rate and volume. Mood described as still down but optimistic, affect congruent. Thought process organized, thought content: patient denies suicidal or homicidal ideation, there were no delusions reported or noted, she denied any auditory or visual hallucinations. Attention and concentration were intact and memory appeared reliable but none were formally tested. She?s alert and oriented times three. Insight and judgment appeared fair and impulse control appeared fair Vitals/I&O/Wt Last Vital Signs Temp 98.1 F 12/16/21 20:29 Pulse 105 H 12/16/21 20:29 Resp 16 12/16/21 20:29 BP 154/92 12/16/21 20:29 Pulse Ox 96 12/16/21 20:29 Data NPU : 12/14/21 18:12 12/14/21 18:12 A&P Assessment and plan (1) PTSD (post-traumatic stress disorder): Status: Acute (2) Methamphetamine use disorder, severe: Status: Acute (3) Depression with suicidal ideation: Status: Acute (4) Vapes nicotine containing substance: Status: Acute (5) Restless legs: Status: Acute (6) Major depressive disorder, recurrent severe without psychotic features: Status: Acute (7) Generalized anxiety disorder: Status: Acute Plan This is a 36-year-old white female with a long history of mental health issues who presents to the neuropsychiatric unit socialization and reporting that it is feeling unsafe at home. 1.? Continue current medication.? Working with her on her records determine what she is been on in past and considering appropriate mood stabilizer. 2.? Continue every 15 minute checks for safety. 3.? Encourage individual, group and milieu therapies. 4.? Encourage sober living treatment after discharge at the highest level of care to which he is willing to commit. Involuntary Hold Information 96 Hour Hold: 96 Hour Involuntary Admission: No Attestations NPU Medical Necessity Statement*: Inpatient hospitalization is medically necessary and the clinically appropriate intervention at this time. We will monitor medication to make changes as indicated. Likely length of stay 1-3 days. Coding Level of Care Code Acute Material Lister for [facility] Fwd Diagnoses PTSD (post-traumatic stress disorder) F43.10 Methamphetamine use disorder, severe F15.20 Depression with suicidal ideation F32.A; R45.851 Vapes nicotine containing substance Z72.0 Restless legs G25.81 Major depressive disorder, recurrent severe without psychotic features F33.2 Generalized anxiety disorder F41.1
[2021-12-16 20:29] VITALS: BP 154/92; PULSE 105; RESP 16; TEMP 36.7; O2SAT 96
[2021-12-16] MEDS: trazodone 50 mg Tablet PO (20:48)
[2021-12-17 06:00] VITALS: BP 113/79; PULSE 70; RESP 14; TEMP 36.7; O2SAT 96
[2021-12-17] MEDS: BuSPIRONE 10 mg Tablet PO (09:53)
[2021-12-17] MEDS: pantoprazole DR 40 mg Tablet PO (09:53)
[2021-12-17] MEDS: phenytoin ER 100 mg Capsule 300 MG PO (09:53)
[2021-12-17] MEDS: ropinirole 0.25 mg Tablet PO (09:54)
[2021-12-17] MEDS: venlafaxine ER (24HR) 150 mg Capsule PO (09:54)
[2021-12-17] MEDS: gabapentin 100 mg Capsule 200 MG PO (09:54)
[2021-12-17] MEDS: topiramate 100 mg Tablet 50 MG PO (09:54)
--- NOTE | 2021-12-17 10:28 | DCPLANNER ---
Imm was given to pt and explained rights and copy put in chart.
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
[2021-12-17 13:05] VITALS: BP 113/79; PULSE 70; RESP 14; TEMP 36.7; O2SAT 96
--- NOTE | 2021-12-17 13:47 | PC.NURSE ---
BEHAVIOR DISCHARGE TEACHING WAS COMPLETED WITH PT. PT WAS VISIBLY UPSET BUT WOULD NOT STATE WHY. PROCEEDED WITH DC TEACHING, DISCUSSED RIDE TO [facility] AND RECEIVING MEDS TO BEDS FOR MEDICATION. AT 1345 PT ESCORTED OUTSIDE TO BATHROOMS TO GET DRESSED WHEN SHE WENT UP TO ANOTHER PT AND YELLED SOMETHING AT HER. STAFF UNABLE TO MAKE OUT WHAT SHE SAID. PT WAS TAKEN TO OTHER SIDE OF DOOR TO DRESS IN BATHROOM WHEN PT BECAME TEARFUL STATING, EVERYONE IS TREATING ME LIKE A DRUG ADDICT AND I CAME HERE TO GET HELP. THIS RN ASKED WHAT I HAD DONE TO UPSET HER SHE THEN POINTED TO THE OTHER PATIENTS ON THE OTHER SIDE AND YELLED ASK THEM. INFORMED PT THAT HER MEDS STILL NEEDED TO BE DELIVERED, PT STATED, I DON'T CARE LET ME OUT OF HERE, I'M DISCHARGED, I SIGNED MY PAPERS STOP HOLDING ME PRISONER. PT HAD A RIDE SET UP TO TAKE HER TO [facility] PER PANTRY STEWARD/STEWARDESS. PT CONTINUED TO REQUEST TO BE LET OUT, PT WAS LET OUT TO GO GET INTO HER RIDE AND GO TO [facility] IN [place]. IT DID NOT APPEAR TO THIS RN THAT PT GOT INTO HER RIDE TO GO TO [employer] DISCHARGE PLANNERS HAD PLANNED WITH HER.. AT 1403 PANTRY STEWARD/STEWARDESS WAS NOTIFIED OF ABOVE AND WENT OUTSIDE AND GAVE PT HER MEDS. PTS MEDIATIONS WERE RECEIVED. PT TOLD TRAINING FACILITATOR THAT SHE WAS STILL WAITING FOR HER RIDE. PANTRY STEWARD/STEWARDESS TO FOLLOW UP ON RIDE.
== END 2021-12-17 13:45 | disposition home or self-care (01) | DRG 885 ==
LOC: ER 16:50 → NP 17:55
PROVIDERS: Admitting Provider Psychiatry & Neurology Psychiatry; Emergency Provider Emergency Medicine; PCP Internal Medicine; Visit Provider Psychiatry & Neurology Psychiatry
DX: F33.2 Major depressive disorder, recurrent severe without psychotic features (principal); R45.851 Suicidal ideations; F15.20 Other stimulant dependence, uncomplicated; F43.10 Post-traumatic stress disorder, unspecified; F41.1 Generalized anxiety disorder; Z62.819 Personal history of unspecified abuse in childhood; F17.290 Nicotine dependence, other tobacco product, uncomplicated
CPT/HCPCS: 80053; 80306; 80307; 83690; 84439; 84443; 84703; 85025; 87635; 93005; 97150; 97165; 99285

== ENCOUNTER → 2022-01-08 13:30 | Outpatient (BNVA) | payer MEDICARE, MEDICAID, SELFPAY | PROVIDERS: PCP Internal Medicine; Referring Provider Specialist; Visit Provider Specialist | DX: G56.03 Carpal tunnel syndrome, bilateral upper limbs (principal) | CPT/HCPCS: 99204 ==

== ENCOUNTER 2022-01-08 15:42 | Outpatient (CLI) | payer MEDICARE, MEDICAID, SELFPAY | END 2022-01-08 15:43 | disposition home or self-care (01) | LOC: SPT 15:43 | PROVIDERS: PCP Internal Medicine; Visit Provider Specialist | DX: Z46.89 Encounter for fitting and adjustment of other specified devices (principal); G56.03 Carpal tunnel syndrome, bilateral upper limbs | CPT/HCPCS: 73110; 97760; 99204; L3908 ==

== ENCOUNTER → 2022-03-16 12:48 | Outpatient (BNVA) | payer MEDICARE, MEDICAID, SELFPAY | PROVIDERS: PCP Internal Medicine; Visit Provider Specialist | DX: G56.03 Carpal tunnel syndrome, bilateral upper limbs (principal) | CPT/HCPCS: 99213 ==

== ENCOUNTER → 2022-05-04 15:41 | Outpatient (BNVA) | payer MEDICARE, SELFPAY | PROVIDERS: Visit Provider Obstetrics & Gynecology | DX: Z01.419 Encounter for gynecological examination (general) (routine) without abnormal findings (principal) | CPT/HCPCS: 87624 ==

== ENCOUNTER → 2022-05-11 12:45 | Outpatient (BNVA) | payer MEDICARE, SELFPAY | PROVIDERS: Visit Provider Specialist | DX: G43.711 Chronic migraine without aura, intractable, with status migrainosus (principal) | CPT/HCPCS: G0463 ==

== ENCOUNTER 2022-06-29 09:02 | Outpatient (CLI) | payer MEDICARE, SELFPAY | END 2022-06-29 09:03 | disposition home or self-care (01) | LOC: LAB 09:06 | PROVIDERS: PCP Family Medicine; Visit Provider Specialist | DX: G56.03 Carpal tunnel syndrome, bilateral upper limbs (principal); F15.20 Other stimulant dependence, uncomplicated | CPT/HCPCS: 36415; 86803; 87522; 99214 ==

== ENCOUNTER 2022-07-10 07:47 | Day surgery (SDC) | payer MEDICARE, SELFPAY ==
[2022-07-09 11:39] VITALS: BMI 30.9
[2022-07-10] VITALS (11 sets, daily range): BP systolic 100–165; BP diastolic 44–103; PULSE 75–104; RESP 14–24; TEMP 36.9–37.3; O2SAT 93–100
[2022-07-10 08:21] LABS: OR HCG Qualitative Urine Negative (Negative)
--- NOTE | 2022-07-10 08:25 | ANES.PREANE2 ---
Pre-Anesthetic Assessment Height/Weight: Height 1.6 m Weight 79.379 kg Temp Pulse Resp BP Pulse Ox O2 Del Method 98.8 F 88 16 165/103 98 07/10/22 08:07 07/10/22 08:07 07/10/22 08:07 07/10/22 08:07 07/10/22 08:07 07/10/22 08:09 Preop Diagnosis: Right carpal tunnel syndrome Operation Date: 07/10/22 09:15 Proposed Procedures p RIGHT CARPAL TUNNEL RELEASE 31101 G56.00(Right) - Karla Boston MD Was Clonidine taken within 24 hours: N/A Last intake: Intake Last Liquid Date 07/09/22 Last Liquid Time 22:30 Last Solid Date 07/09/22 Last Solid Time 10:30 Social Marijuana daily smokes Exam alert, oriented x 3, clear to auscultation bilaterally and regular rate & rhythm Airway Submandibular: within normal limits Cervical ROM: within normal limits Mallampati: Class II Dentition: chipped History/ROS No significant history except as noted and No significant complaints Pulmonary None reported CV/HEM Hypertension None reported Hepatic None reported GI None reported Metabolic None reported Musc/skel None reported Neuropsych Anxiety Anesthetic Plan ASA status: 2 Anesthesia: Anesthesia Evaluation and General Risk of > 500 ml blood loss (7ml/kg in children): No Medications/Allergies Home Medications Medication Instructions Recorded Confirmed Last Taken Type omeprazole 20 mg capsule,delayed 20 mg PO DAILY 30 days #30 caps 12/17/21 07/09/22 07/10/22 07:00 Rx release promethazine 25 mg tablet 25 mg PO QID PRN Nausea And 12/17/21 07/09/22 07/08/22 Rx Vomiting 30 days #90 tabs rizatriptan 10 mg tablet 10 mg PO Q2H PRN Migraine Headache 12/17/21 07/09/22 07/06/22 Rx 30 days #15 tabs ropinirole 0.25 mg tablet 0.25 mg PO TID 30 days #90 tabs 12/17/21 07/09/22 07/10/22 07:00 Rx topiramate 100 mg tablet (Topamax) 50 mg PO DAILY 30 days #30 tabs 12/17/21 07/09/22 07/10/22 07:00 Rx left wrist cock up splint #1 ea 01/08/22 06/29/22 Unknown Rx gabapentin 100 mg capsule 200 mg PO TID 30 days #180 caps 04/23/22 07/09/22 07/10/22 07:00 Rx marijuana 1 inh as directed PRN 04/23/22 07/09/22 07/10/22 07:00 History buspirone 10 mg tablet 20 mg PO BID PRN anxiety #360 tabs 06/29/22 07/09/22 07/10/22 07:00 Rx metoprolol tartrate 25 mg tablet 25 mg PO BID #60 tabs 06/29/22 07/09/22 07/10/22 07:00 Rx venlafaxine 225 mg tablet,extended 225 mg PO QAM #90 tabs 06/29/22 07/09/22 07/10/22 07:00 Rx release 24 hr Allergies Allergy/AdvReac Type Severity Reaction Status Date / Time No Known Allergies Allergy Verified 07/09/22 11:36 [facility] Anesthesia Medical History Chronic migraine without aura, intractable, with status migrainosus Demyelinating disease of central nervous system GERD (gastroesophageal reflux disease) Hepatitis C Completed Epclusa in 12/08. SVR. Major depressive disorder, recurrent severe without psychotic features Anxiety and depression diagnosed at the age of 28 and she sees a therapist and is on medication which helps control her symptoms. Seizure disorder Diagnosed at the age of 18 and is being managed by Dr. Vega whom she sees every 3 months. Surgical History History of dilation and curettage 2011 for a miscarriage at [facility]. Status post lumbar surgery 2010--performed at [facility] in [facility] Family History Father Heart disease Mother Stroke Thyroid condition Breast cancer diagnosed at age 50 Grandmother Hypertension paternal Heart disease paternal Hyperlipidemia paternal Grandfather Diabetes paternal Colon cancer paternal, diagnosed at age 64 Sister Thyroid condition Denies family history of Ovarian cancer Uterine cancer Female Reproductive History Date of last menstrual period: 07/02/22 Data Anesthesia Cardiac Studies: Holter Monitor 09/13/19
[2022-07-10] MEDS: sodium chloride 0.9% 1,000 ML 30 ML IV (08:40)
[2022-07-10] MEDS: acetaminophen 1,000 MG/100 ML PIGGYBACK 400 MG IV (08:45)
[2022-07-10] MEDS: CELEcoxib 200 mg Capsule 400 MG PO (08:51)
--- NOTE | 2022-07-10 09:45 | P.HPUD_ITS ---
Surgery/Procedure H&P Update DATE OF PROCEDURE: July 10, 2022 DATE H&P PERFORMED: 06/29/22 H&P UPDATE INFORMATION: I have reviewed H&P completed within last 30 days, I have examined patient prior to procedure, No changes to prior documentation and H&P is in [facility] EMR on date indicated PREOP DIAGNOSIS: Right carpal tunnel syndrome PLANNED PROCEDURE: Operation Date: 07/10/22 09:15 Proposed Procedures p RIGHT CARPAL TUNNEL RELEASE 80943 G56.00(Right) - Karla Boston MD Related Problem List Diagnoses (1) Carpal tunnel syndrome on right:
[2022-07-10] MEDS: ceFAZolin 2,000 MG in sodium chloride 0.9% (plus) 50 ML 100 MG IV (09:50)
--- NOTE | 2022-07-10 10:56 | SUR.PHASEI ---
1046 PT TO PACU 2 SLEEPS WITH GOOD RESP NOTED, MONITOR SR WITH NO ECTOPY, VSS IV TO LT HAND #20 WITH NS 200JML UP AT KVO RATE. ID BRACELET TO LT WRIST, PT ID'D WITH [address]IERS [address] SCD IN PLACE, RT LOWER ARM WRIST IN SOFT DRESSING D/I DISTAL FINGERS PINK WARM WITH CAP REFILL LESS THAN 3 SECONDS 1100 PT AWAKES TO VOICE, PT PLACED ON RA TRIAL, PT TAKING OCC ICE CHIPS AND VERBALIZED NO PAIN OR NAUSEA, AND NOT COLD, PT MOVES RT FINGERS TO COMMAND, AND STATES SHE FEELS TOUCH TO FINGERS.
--- NOTE | 2022-07-10 11:09 | P.OP_ITS ---
Operative Report Date of procedure: July 10, 2022 Pre-op diagnosis: Right carpal tunnel syndrome Post-op diagnosis: Right carpal tunnel syndrome Post-op findings: Significant compression across the median nerve with purplish discoloration Procedure done: Right carpal tunnel release Specimens removed/disposition: None Surgeon: Karla Boston Dry Wall Sprayer: None Anesthesia: General (Per LMA) Estimated blood loss (mL): 2 Tourniquet time (min): 20 (At 250 mmHg) IV fluids (mL): 800 Urine output (mL): 0 (No Carter) Complications: None Findings: Compression across and purplish discoloration of the median nerve consistent with carpal tunnel syndrome Condition: stable Disposition: PACU (Then return to same-day surgery for discharge to home) Brief History: Shelly Acevedo is an established 37 year old female patient who is here today for right carpal tunnel release.? Last time patient was seen, she had multiple skin lesions secondary to her previous lifestyle. Patient was encouraged to hold off on surgery until sore's were healed.? Lesions are well healed, and the patient has remained clean.? Patient rates pain in her hands at 6/10 and states it is worse in the right wrist. In the office, questions were answered and consents were signed. The patient was scheduled for the above surgery. Procedure: The patient was brought to the operating theater. The patient had a general anesthesia per LMA. The tourniquet was elevated to 250 mmHg for a total tourniquet time of 20 minutes. The patient was also given Ancef 2 g preoperatively. The arm was then prepped and draped with DuraPrep in usual fashion with the arm draped free. A surgical pause was performed. At the time, the surgical pause, we confirmed the site and side of surgery. We also confirmed the patient's identity, appropriate and timely administration of preoperative antibiotics and preoperative surgical markings. An incision was then made along the thenar crease. The incision crossed the wrist joint in a curvilinear fashion. Dissection continued through skin and soft tissues using a scalpel. The palmaris longus was identified along with the transverse carpal ligament. Each of these was released carefully to avoid injury to the median nerve. We were able to dissect gently into the carpal canal which was noted to be quite tight with significant compression across the median nerve. The nerve was visualized and was an hourglass shape. The canal was subsequently palpated to assure there was no bony encroachment upon the canal. There was a quite thickened fibrous tissue within the canal, and this was opened longitudinally as well. The canal was then palpated distally and proximally to assure that my small finger was passed easily without impingement. Finding this to be so, attention was directed to closure. The wound was irrigated with ropivacaine plain. It was then closed with 3-0 nylon in an interrupted mattress fashion. Sterile dressing was then placed consisting of Dermabond, OpSite, sterile soft roll, and an Clarke wrap. The tourniquet was released after 20 minutes. There were no complications. There were no specimens. The procedure was well tolerated. Plan is the patient will be discharged home. Related Problem List Diagnoses (1) Carpal tunnel syndrome on right:
--- NOTE | 2022-07-10 12:00 | SUR.PHASEII ---
11:50 NERVE BLOCK PERFORMED BY DOCTOR VILLAGOMEZ. PT TOLERATED PROCEDURE WELL.
--- NOTE | 2022-07-10 12:44 | ANES.PROC ---
Anesthesia Procedures Procedure/Date: 07/10/22 Nerve Block ^: Nerve Block 1: Main Anesthesia: general anesthesia Time Out Performed: Yes Consent: requested by attending/covering physician, from patient, risks and benefits reviewed and patient agrees to proceed Nerve block location: interscalene (right) Anesthesia monitors applied: pulse oximetry, EKG, BP cuff and oxygen Anesthetic Used: ropivicaine 0.5% Amount of anesthesia used (mL): 20 Ultrasound used to: recognize landmarks and visualize and ID brachial plexus Nerve Stimulator Used?: No Interscalene/Femoral BLK: 2 stimuplex 22 g needle used for position and inplane approach Injection: neg aspiration of heme Patient Tolerated Procedure: well Complications: none
--- NOTE | 2022-07-10 14:18 | ANE.PACU2 ---
Inpatient post-anesthesia follow up: Airway intact: Yes Vital signs: Temperature 98.7 F Pulse Rate 93 Respiratory Rate 16 Blood Pressure 149/95 Pulse Oximetry 94 Oxygen Delivery Me thod Room Air Oxygen Flow Rate 8 Fraction of Inspir ed Oxygen Hydration adequate: Yes Nausea and vomiting: No Pain level: 1 Mental status: Baseline
== END 2022-07-10 13:00 | disposition home or self-care (01) ==
PROVIDERS: Anesthesiology; PCP Family Medicine; Visit Provider Specialist
PROC: (CPT 64721; principal; 2022-07-10 09:05)
DX: G56.01 Carpal tunnel syndrome, right upper limb (principal); I10 Essential (primary) hypertension; K21.9 Gastro-esophageal reflux disease without esophagitis; Z86.19 Personal history of other infectious and parasitic diseases
CPT/HCPCS: 64721; 81025; 84703; J0131; J0690; J1100; J2250; J2405; J2704; J2795; J3010; J3490; J7030

== ENCOUNTER → 2022-07-23 10:01 | Outpatient (BNVA) | payer MEDICARE, SELFPAY | PROVIDERS: PCP Family Medicine; Visit Provider Nurse Practitioner Family | DX: G56.02 Carpal tunnel syndrome, left upper limb (principal); Z98.890 Other specified postprocedural states | CPT/HCPCS: 99214 ==

== ENCOUNTER 2022-08-14 06:09 | Day surgery (SDC) | payer MEDICARE, SELFPAY ==
[2022-08-13 14:02] VITALS: BMI 29.7
[2022-08-14] VITALS (8 sets, daily range): BP systolic 72–99; BP diastolic 38–81; PULSE 70–92; RESP 15–18; TEMP 36.4–36.7; O2SAT 92–98
[2022-08-14 06:28] LABS: OR HCG Qualitative Urine Negative (Negative)
[2022-08-14] MEDS: sodium chloride 0.9% 1,000 ML 30 ML IV (06:35)
[2022-08-14] MEDS: CELEcoxib 200 mg Capsule 400 MG PO (06:38)
[2022-08-14] MEDS: acetaminophen 1,000 MG/100 ML PIGGYBACK 400 MG IV (06:39)
--- NOTE | 2022-08-14 06:39 | P.ANESASSM_ITS ---
Pre-Anesthetic Assessment Height/Weight: Height 1.6 m Weight 76.204 kg Temp Pulse Resp BP Pulse Ox O2 Del Method 97.6 F 83 18 98/81 97 08/14/22 06:26 08/14/22 06:26 08/14/22 06:26 08/14/22 06:26 08/14/22 06:26 08/14/22 06:26 Preop Diagnosis: Left carpal tunnel syndrome Operation Date: 08/14/22 07:00 Proposed Procedures p LEFT CARPAL TUNNEL RELEASE 50511,G56.00(Left) - Karla Boston MD Familial anesthetic complications: None Was Beta Cyn taken within 24 hours: N/A Was Clonidine taken within 24 hours: N/A Last intake: Intake Last Liquid Date 08/13/22 Last Liquid Time 21:00 Last Solid Date 08/13/22 Last Solid Time 21:00 Social No alcohol and No tobacco hx meth, MJ use Exam alert, oriented x 3, clear to auscultation bilaterally and regular rate & rhythm Airway Mallampati: Class II Dentition: chipped GI Gastroesophageal Reflux Disease Anesthetic Plan ASA status: 2 Anesthesia: General Risk of > 500 ml blood loss (7ml/kg in children): No Medications/Allergies Home Medications Medication Instructions Recorded Confirmed Last Taken Type promethazine 25 mg tablet 25 mg PO QID PRN Nausea And 12/17/21 08/13/22 1 Day Ago Rx Vomiting 30 days #90 tabs ~08/12/22 rizatriptan 10 mg tablet 10 mg PO Q2H PRN Migraine Headache 12/17/21 08/13/22 08/14/22 Rx 30 days #15 tabs ropinirole 0.25 mg tablet 0.25 mg PO TID 30 days #90 tabs 12/17/21 08/13/22 08/14/22 Rx topiramate 100 mg tablet (Topamax) 50 mg PO DAILY 30 days #30 tabs 12/17/21 08/13/22 1 Day Ago Rx ~08/12/22 left wrist cock up splint #1 ea 01/08/22 07/27/22 Unknown Rx gabapentin 100 mg capsule 200 mg PO TID 30 days #180 caps 04/23/22 08/13/22 08/14/22 Rx buspirone 10 mg tablet 20 mg PO BID PRN anxiety #360 tabs 06/29/22 08/13/22 08/14/22 Rx venlafaxine 225 mg tablet,extended 225 mg PO QAM #90 tabs 06/29/22 08/13/22 08/14/22 Rx release 24 hr metoprolol tartrate 25 mg tablet 25 mg PO BID #180 tabs 07/27/22 08/13/22 08/14/22 05:00 Rx omeprazole 20 mg capsule,delayed 20 mg PO DAILY 30 days #90 caps 07/27/22 08/13/22 08/14/22 Rx release trazodone 50 mg tablet 50 mg PO .qhs #90 tabs 07/27/22 08/14/22 08/13/22 Rx clindamycin 1 %-benzoyl peroxide 5 1 applic topical BID #50 grams 08/14/22 08/14/22 Unknown Rx % topical gel Allergies Allergy/AdvReac Type Severity Reaction Status Date / Time No Known Allergies Allergy Verified 08/13/22 13:56 Current Medications Generic Name Dose Route Start Last Admin Trade Name Freq PRN Reason Stop Dose Admin Sodium Chloride 1,000 mls @ 30 mls/hr 08/14/22 06:15 08/14/22 06:35 Sodium Chloride 0.9% IV 08/15/22 06:14 30 mls/hr .Q24H MARGOTH Administration PFS Anesthesia Medical History Chronic migraine without aura, intractable, with status migrainosus Demyelinating disease of central nervous system GERD (gastroesophageal reflux disease) Hepatitis C Completed Epclusa in 12/08. SVR. Major depressive disorder, recurrent severe without psychotic features Anxiety and depression diagnosed at the age of 28 and she sees a therapist and is on medication which helps control her symptoms. Psychiatric care Seizure disorder Diagnosed at the age of 18 and is being managed by Dr. Vega whom she sees every 3 months. Surgical History History of dilation and curettage 2011 for a miscarriage at [facility]. Status post lumbar surgery 2010--performed at [facility] in [facility] Family History Father Heart disease Mother Stroke Thyroid condition Breast cancer diagnosed at age 50 Grandmother Hypertension paternal Heart disease paternal Hyperlipidemia paternal Grandfather Diabetes paternal Colon cancer paternal, diagnosed at age 64 Sister Thyroid condition Denies family history of Ovarian cancer Uterine cancer Female Reproductive History Date of last menstrual period: 07/02/22 Data Anesthesia Cardiac Studies: Holter Monitor 09/13/19
--- NOTE | 2022-08-14 06:59 | W.PM.OPSUD ---
Surgery/Procedure H&P Update DATE OF PROCEDURE: August 14, 2022 DATE H&P PERFORMED: 07/23/22 H&P UPDATE INFORMATION: I have reviewed H&P completed within last 30 days, I have examined patient prior to procedure, No changes to prior documentation and H&P is in [facility] [place] on date indicated PREOP DIAGNOSIS: Left carpal tunnel syndrome PLANNED PROCEDURE: Operation Date: 08/14/22 07:00 Proposed Procedures p LEFT CARPAL TUNNEL RELEASE 65908,G56.00(Left) - Karla Boston MD Related Problem List Diagnoses (1) Carpal tunnel syndrome, left:
[2022-08-14] MEDS: ceFAZolin 2,000 MG in sodium chloride 0.9% (plus) 50 ML 100 MG IV (07:06)
--- NOTE | 2022-08-14 07:48 | P.OP_ITS ---
Operative Report Date of procedure: August 14, 2022 Pre-op diagnosis: Left Carpal Tunnel Syndrome Post-op diagnosis: Left carpal tunnel syndrome Post-op findings: Significant compression across the median nerve with purplish discoloration Procedure done: Left carpal tunnel release Pathology: none sent Surgeon: Karla Boston [employer] Manager: None Anesthesia: General (Per LMA, ASA 3) Estimated blood loss (mL): 2 Tourniquet time (min): 14 (250 mmHg) IV fluids (mL): 500 Urine output (mL): 0 (No Carter) Complications: None Findings: Purplish discoloration and compression across the median nerve consistent with diagnosis of carpal tunnel syndrome Condition: stable Disposition: PACU (Then return to same-day surgery for discharge to home) Brief History: Shelly Acevedo is an established 37 year old female who presents today for left carpal tunnel release. She is post op of her right carpal tunnel surgery with DOS 07/10/22. She denies any numbness and tingling in her right hand, and now she wants to proceed with her left.? She has symptoms consistent with carpal tunnel. Risks and complications were discussed with her. Consents were signed. Questions were answered. Procedure: The patient was brought to the operating theater. The patient had a general anesthesia per LMA, ASA 3. The tourniquet was elevated to 250 mmHg for a total tourniquet time of 14 minutes. The patient was also given Ancef 2 g preoperatively. The arm was then prepped and draped with DuraPrep in usual fashion with the arm draped free. A surgical pause was performed. At the time, the surgical pause, we confirmed the site and side of surgery. We also confirmed the patient's identity, appropriate and timely administration of preoperative antibiotics and preoperative surgical markings. An incision was then made along the thenar crease. The incision crossed the wrist joint in a curvilinear fashion. Dissection continued through skin and soft tissues using a scalpel. The palmaris longus was identified along with the transverse carpal ligament. Each of these was released carefully to avoid injury to the median nerve. We were able to dissect gently into the carpal canal which was noted to be quite tight with significant compression across the median nerve. The nerve was visualized and was an hourglass shape. The canal was subsequently palpated to assure there was no bony encroachment upon the canal. There was a quite thickened fibrous tissue within the canal, and this was opened longitudinally as well. The canal was then palpated distally and proximally to assure that my small finger was passed easily without impingement. Finding this to be so, attention was directed to closure. The wound was irrigated with ropivacaine plain. It was then closed with 3-0 nylon in an interrupted mattress fashion. Sterile dressing was then placed consisting of Dermabond, OpSite, sterile soft roll, and an Clarke wrap. The tourniquet was released after 14 minutes. There were no complications. There were no specimens. The procedure was well tolerated. Plan is the patient will be discharged home. Related Problem List Diagnoses (1) Carpal tunnel syndrome, left:
--- NOTE | 2022-08-14 18:01 | ANE.PACU2 ---
Inpatient post-anesthesia follow up: Airway intact: Yes Vital signs: Temperature 98.0 F Pulse Rate 81 Respiratory Rate 18 Blood Pressure 97/59 Pulse Oximetry 92 Oxygen Delivery Me thod Room Air Oxygen Flow Rate 6 Fraction of Inspir ed Oxygen Hydration adequate: Yes Nausea and vomiting: No Pain level: 1 Mental status: Baseline
== END 2022-08-14 08:58 | disposition home or self-care (01) ==
PROVIDERS: Anesthesiology; PCP Family Medicine; Visit Provider Specialist
PROC: (CPT 64721; principal; 2022-08-14 07:00)
DX: G56.02 Carpal tunnel syndrome, left upper limb (principal); K21.9 Gastro-esophageal reflux disease without esophagitis; Z86.19 Personal history of other infectious and parasitic diseases
CPT/HCPCS: 64721; 81025; 84703; J0131; J0690; J1100; J2250; J2405; J2704; J3010; J3490; J7030